=== PATIENT | female | born 1930 | race Caucasian/White ===

== ENCOUNTER 2016-12-16 23:04 | Inpatient (IN) | payer MEDICARE, OTHER ==
--- NOTE | ~2016-12-16 | DS ---
Unit #: [id number] #: [id number] Patient: SANDI JIMENEZ [id number] [facility] [address]. [place], [place] [address] [id number] MR#: [id number] NAME: SANDI JIMENEZ ROOM: 47 Age: 85 Sex: F Admission Date: 12/17/2016 : 1930 Discharge Date: 12/20/2016 Attending Physician: Cierra Worthy M.D. Primary Care Physician: Vince Mitchell M.D. DISCHARGE SUMMARY DIAGNOSIS ON ADMISSION 1. Acute urinary tract infection. 2. Acute kidney injury. DIAGNOSES ON DISCHARGE 1. Acute Escherichia coli urinary tract infection. 2. Acute on chronic kidney disease, improved. 3. Chronic kidney disease, stage 3. 4. History of atrial fibrillation. 5. Dementia. 6. History of right upper extremity injury. 7. Hypothyroidism. 8. Hypertension. 9. History of overactive bladder. 10. Parkinson disease. LABS AND PROCEDURES DONE The patient's creatinine is 1.8. It was 2.51 on admission. Sodium 134, potassium is 4.1. The patient's vitamin B12 level was 1077, folate level was 21.9, WBC 6.6, hemoglobin 10.1, platelet count is 112. MCV was 102.4. Urine culture was positive for E. coli. HOSPITAL COURSE 85-year-old patient was admitted at [facility] with acute urinary tract infection and acute kidney injury. Details are as per admission H and P. Acute Escherichia coli urinary tract infection: The patient was treated with IV antibiotics. She has responded well and her shortness of air has improved. Acute on chronic kidney disease: The patient was treated with IV fluids. Creatinine is 1.8. I believe patient has underlying chronic kidney disease stage 3. Anemia with elevated MCV: Patient's vitamin B12 and folic acid levels are good. Hemoglobin is stable. The patient's son does not want any aggressive workup done because of history of dementia. Today, patient is comfortable, is not in any acute distress. Vital signs reveal a temperature of 98.1, pulse is 62/minute, respiratory rate is Unit #: [id number] #: [id number] Patient: SANDI JIMENEZ 16/minute, blood pressure is 105/61. HEENT examination revealed no conjunctival congestion. Sclerae is nonicteric. NECK is supple, trachea is central. RESPIRATORY examination revealed decreased breath sounds bilaterally. There are no wheezes or crackles. HEART is regular rate and rhythm. S1, S2. ABDOMEN is soft, nontender. Bowel sounds are present in all four quadrants. NEUROLOGICALLY, patient is pleasantly confused. MUSCULOSKELETAL - the patient has right upper extremity weakness and swelling. Patient's son stated that she has injured her right arm years ago and is not able to use it. SKIN is warm and dry. RECOMMENDATIONS ON DISCHARGE Patient is stable. Activity is as tolerated. MEDICATIONS 1. Tylenol 650 mg p.o. q.4 hours p.r.n. 2. Januvia 50 mg p.o. daily. 3. Detrol LA 4 mg p.o. daily. 4. Atenolol 25 mg p.o. daily. 5. Senna two tablets p.o. q. h.s. 6. Carbidopa/levodopa 10/100, one tablet p.o. b.i.d. 7. Cranberry, two tablets daily. 8. Enteric coated aspirin, 325 mg p.o. daily. 9. Prilosec 40 mg p.o. daily. 10. Calcium with vitamin D, one tablet p.o. daily. 11. Synthroid 50 mcg p.o. daily. 12. Omnicef 300 mg p.o. daily for elevated creatinine. 13. Patient's glyburide was discontinued because of increased creatinine and low blood sugars. We have continued Januvia for now. If patient's blood sugars are on the lower side, then kindly DC that. 14. The patient's Lasix and lisinopril were discontinued because of elevated creatinine. Kindly address it. FOLLOWUP The patient is advised to follow up with primary care physician in one week and have a CBC and BMP done. The plan was discussed in detail with patient's son who showed complete understanding. Patient's creatinine is 1.1 today and she will have a repeat creatinine done with primary care physician in one week. We will also arrange home health regarding home PT, OT and nursing. Dictated by... Frederic Antunez TD: 12/20/2016 12:07 JOB #: [id number] Unit #: [id number] #: [id number] Patient: SANDI JIMENEZ DISCHARGE SUMMARY Page 1 of 1 X Cierra Worthy MD X DISCHARGE SUMMARY
--- NOTE | ~2016-12-16 | HP ---
Unit #: [id number] #: [id number] Patient: SANDI JIMENEZ [id number] [address] [place], [place] [address] [id number] I MR#: [id number] NAME: SANDI JIMENEZ ROOM: 454 Age: 85 Sex: F Admission Date: 12/17/2016 : 1930 Attending Physician: Shila Kwong M.D. Primary Care Physician: Vince Mitchell M.D. HISTORY AND PHYSICAL CHIEF COMPLAINT Urinary tract infection with nausea and vomiting, acute kidney injury. HISTORY This pleasant 85-year-old female with AODM, atrial fibrillation, hypertension, dementia, is admitted for UTI and acute kidney injury. The patient was placed on a honey-thickened liquid diet, tends to take in less p.o. liquids. Last evening she developed nausea and vomiting and was brought to this emergency department where she was found to have a urinary tract infection. Labs also indicate acute kidney injury. In the ER, she was treated with Zofran, IV fluids and Rocephin. PAST MEDICAL HISTORY 1. AODM. 2. Chronic atrial fibrillation, not anticoagulated due to falling and coffee ground emesis. 3. Admissions for coffee ground emesis this past year with EGD revealing only a small to medium hiatal hernia. 4. Echo 04/2010 - normal LV and RV function with moderate MR and TR. 5. Hypothyroidism. 6. History of falls. 7. Pandiverticulosis noted on colonoscopy 06/2015. 8. Essential hypertension. 9. Dementia with dysphagia and increasing immobilization syndrome. 10. Overactive bladder. 11. Possible SIADH. 12. Parkinson disease or Parkinson-like syndrome. 13. Total abdominal hysterectomy. 14. Appendectomy. 15. Bladder surgery. 16. Left shoulder surgery. 17. Resection. ALLERGIES No known drug allergies. HOME MEDICATIONS 1. Omeprazole 40 mg daily. 2. Sinemet 10/100 b.i.d. 3. Lasix 40 mg, one half tablet daily. 4. Senna-S 50 mg, two tablets q. h.s. 5. Januvia 50 mg q. p.m. 6. Detrol LA 4 mg daily. Unit #: [id number] #: [id number] Patient: SANDI JIMENEZ 7. Lisinopril 5 mg daily. 8. Glyburide 5 mg, one half tablet q. a.m. 9. Synthroid 0.1 mg daily. 10. Atenolol 50 mg, one half tablet daily. 11. Aspirin 325 mg daily. 12. Calcium. 13. Cranberry tablets. FAMILY HISTORY Noncontributory given patient's age. SOCIAL HISTORY The patient lives with her son. She uses a walker but needs assistance to ambulate. Lifelong nonsmoker, does not drink alcohol. REVIEW OF SYSTEMS Difficult to obtain due to patient's confusion but she does admit to dysuria. PHYSICAL EXAMINATION GENERAL APPEARANCE: Pleasant 85-year-old female, currently in no acute distress. VITAL SIGNS: Temperature 97.6, pulse 71, respirations 14, blood pressure 121/72. O2 saturation is 98% on room air. HEENT: Eyes PERRLA. Extraocular muscles are intact. Pharynx is benign with dry mucosal membranes and dentures in place. NECK: Supple without adenopathy or thyromegaly. CHEST: Clear. CARDIAC: Normal S1 and S2. Soft systolic murmur. ABDOMEN: Bowel sounds are present. No hepatosplenomegaly, tenderness or masses. BACK: Without CVA tenderness. EXTREMITIES: Without clubbing, cyanosis or edema. Pedal pulses are present. NEUROLOGIC: The patient is awake, alert, oriented. Cranial nerves are intact. Equal strength throughout. DIAGNOSTIC STUDIES LABORATORY: Admission labs - hematocrit is 31.1 which is improved. MCV is 103.6. Normal white count. Platelet count is 121. SMA-12 - glucose is 265, BUN 54, creatinine 2.9, up from a BUN of 16, creatinine of 1.1 in July. Calcium is 8.3. The patient had a normal B12 level in July. Urinalysis - positive leukocyte esterase, protein and blood. Innumerable red cells and white cells with 4+ bacteria. ASSESSMENT 1. Urinary tract infection with nausea and vomiting. 2. Acute kidney injury, likely related to decreased liquid intake since being on a honey-thickened liquid diet in the setting of taking Lasix. 3. Dementia with dysphagia and immobilization syndrome. 4. Atrial fibrillation, not anticoagulated due to previous upper gastrointestinal bleeding. 5. Essential hypertension. 6. Adult onset diabetes mellitus. 7. Parkinson disease. Unit #: [id number] #: [id number] Patient: SANDI JIMENEZ PLANS 1. Rocephin will be continued. 2. Would discontinue Lasix in this elderly patient who takes in little p.o. 3. IV fluids. 4. Hold lisinopril. 5. Hold oral hypoglycemics until better p.o. 6. SCDs for DVT prophylaxis. 7. Sliding scale insulin. 8. Patient is a DNR per her family. Dictated by Shila Kwong M.D. AML/df TD: 12/17/2016 05:39 JOB #: [id number] HISTORY AND PHYSICAL Page 1 of 1 X Shila Kwong MD X HISTORY AND PHYSICAL
[~2016-12-16 23:04] MED LIST: ACIPHEX20 MG PO; ASPIRIN81 M1 PO; ATENOLOL25 MG PO; ATENOLOL50 MG PO; BACTRIM DS TABL1 TA1 PO; BAYER ASPIRIN325 M1 PO; BENTYL20 M1 PO; CALCIUM 500 +1 EAC2 PO; CARAFATE1 GM PO; COATED ASPIRIN325 M1 PO; COLACE PO; COUMADIN PO; CYANOCOBAL1000 MCG/M INJ; DETROL LA PO; DETROL LA2 MG PO; EVISTA60 M1 PO; EVISTA60 MG PO; FOLIC ACID PO; FOLIC ACID0.8 MG PO; FUROSEMIDE40 MG PO; GLYBURIDE PO; GLYNASE PO; IBUPROFEN PO; JANUVIA50 MG PO; KEFLEX500 M1 PO; LASIX PO; LASIX20 MG PO; LISINOPRIL PO; LISINOPRIL5 MG PO; MACRODANTIN50 MG PO; METFORMIN HCL500 M1 PO; METOCLOPRAMIDE H5 MG; METOCLOPRAMIDE H5 MG PO; MICRONASE5 M2 PO; MIRALAX17 G2 PO; OMEPRAZOLE40 M1 PO; PERCOCET PO; PERCOCET5/325 PO; PRILOSEC20 M1 PO; PROTONIX PO; REGLAN10 MG PO; REGLAN5 MG PO; SINEMET PO; SYNTHROID PO; SYNTHROID0.1 MG PO; TENORMIN25 MG PO; TOPROL XL PO; TYLENOL EXTRA500 M1 PO; VIT E PO; VITAMIN B-122000 MC1 PO; VITAMIN B12-FO1 EACH PO; VITAMIN B122500 MCG PO; VITAMIN C500 M7 PO; ZOCOR PO; [UNRECOGNIZED DRUG - OTHER] PO
[2016-12-17 01:09] LABS: BASOPHIL% 0.4 % (0-2.5); EOSINOPHIL% 0.4 % (0.0-7.0); HEMATOCRIT 31.1 % (35.0-45.0); HEMOGLOBIN 10.2 gm/dL (12.0-16.0); LYMPHOCYTE# 1.2 X10e3 (1.0-3.5); LYMPHOCYTE% 13.1 % (17.0-45.0); MEAN CELL VOLUME 103.6 FL (83-96); MEAN CORPUSCULAR HEMOGLOBIN 34.2 PG (28-34); MONOCYTE# 0.7 X10e3 (0-1.0); MONOCYTE% 7.3 % (3.0-12.0); NEUTROPHIL# 7.1 X10e3 (1.5-7.1); NEUTROPHIL% 78.8 % (40-75); PLATELET COUNT 121 X10e3 (140-420); RED CELL DISTRIBUTION WIDTH 14.2 % (11.0-15.5); WHITE BLOOD COUNT 9.1 X10e3 (4.0-10.5)
[2016-12-17 01:11] LABS: DIFF IND NO
[2016-12-17 01:42] LABS: BUN/CREATININE RATIO 18.62; CALCIUM SERUM 8.3 mg/dL (8.4-10.2); CREATININE SERUM 2.9 mg/dL (0.6-1.4); GLOM FILT RATE Estimated 14.3 mL/min (>60); POTASSIUM 4.4 mmol/L (3.5-5.1)
[2016-12-17 02:31] LABS: URINE SOURCE CLEAN CATCH
[2016-12-17 02:40] LABS: URINE APPEARANCE TURBID; URINE BILIRUBIN NEG (NEG); URINE BLOOD 3+ (NEG); URINE COLOR RED; URINE GLUCOSE NEG (NEG); URINE KETONE NEG (NEG); URINE LEUKOCYTE ESTERASE 3+ (NEG); URINE NITRATE NEG (NEG); URINE PH 5.5 (5-8); URINE PROTEIN 3+ (NEG); URINE SPECIFIC GRAVITY 1.016 (1.003-1.035); URINE UROBILINOGEN 0.2 MG/DL (NEG)
[2016-12-17 02:44] LABS: CULTURE INDICATED? YES; URBCS1 AUWI INNUM /[HPF] (0-2); URINE BACTERIA AUWI 4+ (NEGATIVE); URINE SQUAMOUS EPITHELIAL CELL NONE SEEN /[HPF]; UWBCS1 AUWI INNUM (0-5)
[2016-12-17] MEDS ORDERED: CARBIDOPA-LEVO1 EACH PO (03:19)
[2016-12-17] MEDS ORDERED: SENNA-S TABLET1 EACH PO (03:19)
[2016-12-17] MEDS ORDERED: OMEPRAZOLE40 M1 PO (03:19)
[2016-12-17] MEDS ORDERED: LASIX20 MG PO (03:19)
[2016-12-17] MEDS ORDERED: LISINOPRIL5 MG PO (03:21)
[2016-12-17] MEDS ORDERED: GLYBURIDE2.5 M1 PO (03:21)
[2016-12-17] MEDS ORDERED: JANUVIA50 MG PO (03:21)
[2016-12-17] MEDS ORDERED: DETROL LA PO (03:21)
[2016-12-17] MEDS ORDERED: ATENOLOL25 MG PO (03:22)
[2016-12-17] MEDS ORDERED: CALCIUM 500 +1 EAC1 PO (03:22)
[2016-12-17] MEDS ORDERED: LEVOTHYROXINE100 MCG PO (03:22)
[2016-12-17] MEDS ORDERED: ASPIRIN PO (03:22)
[2016-12-17] MEDS ORDERED: CRANBERRY450 M2 PO (03:23)
[2016-12-18 04:18] LABS: BUN/CREATININE RATIO 18.4; CALCIUM SERUM 7.4 mg/dL (8.4-10.2); CREATININE SERUM 2.5 mg/dL (0.6-1.4); GLOM FILT RATE Estimated 17.1 mL/min (>60); POTASSIUM 4.5 mmol/L (3.5-5.1)
[2016-12-18 08:10] LABS: BASOPHIL% 0.6 % (0-2.5); EOSINOPHIL# 0.5 X10e3 (0-0.7); EOSINOPHIL% 6.9 % (0.0-7.0); HEMOGLOBIN 9.6 gm/dL (12.0-16.0); LYMPHOCYTE# 1.6 X10e3 (1.0-3.5); LYMPHOCYTE% 22.3 % (17.0-45.0); MEAN CELL VOLUME 103.3 FL (83-96); MEAN CORPUSCULAR HEMOGLOBIN 34.2 PG (28-34); MEAN CORPUSCULAR HGB CONC 33.1 g/dL (30-36); MEAN PLATELET VOLUME 9.8 FL (6.5-11.5); MONOCYTE# 0.6 X10e3 (0-1.0); MONOCYTE% 8.9 % (3.0-12.0); NEUTROPHIL# 4.3 X10e3 (1.5-7.1); NEUTROPHIL% 61.3 % (40-75); PLATELET COUNT 121 X10e3 (140-420); RED BLOOD COUNT 2.81 X10e (3.90-5.30); RED CELL DISTRIBUTION WIDTH 14.3 % (11.0-15.5); WHITE BLOOD COUNT 7.1 X10e3 (4.0-10.5)
[2016-12-18 08:32] LABS: DIFF IND NO
[2016-12-19 04:32] LABS: BUN/CREATININE RATIO 19.09; CALCIUM SERUM 7.8 mg/dL (8.4-10.2); CREATININE SERUM 2.2 mg/dL (0.6-1.4); GLOM FILT RATE Estimated 19.9 mL/min (>60); POTASSIUM 4.4 mmol/L (3.5-5.1)
[2016-12-19 04:55] LABS: FOLATE (FOLIC ACID) 21.9 ng/mL (>5.8)
[2016-12-20 04:25] LABS: HEMATOCRIT 30.9 % (35.0-45.0); HEMOGLOBIN 10.1 gm/dL (12.0-16.0); MEAN CELL VOLUME 102.4 FL (83-96); MEAN CORPUSCULAR HEMOGLOBIN 33.5 PG (28-34); MEAN CORPUSCULAR HGB CONC 32.7 g/dL (30-36); MEAN PLATELET VOLUME 9.8 FL (6.5-11.5); RED BLOOD COUNT 3.02 X10e (3.90-5.30); RED CELL DISTRIBUTION WIDTH 13.6 % (11.0-15.5); WHITE BLOOD COUNT 6.6 X10e3 (4.0-10.5)
[2016-12-20 04:37] LABS: BUN/CREATININE RATIO 21.11; CALCIUM SERUM 8.1 mg/dL (8.4-10.2); CREATININE SERUM 1.8 mg/dL (0.6-1.4); GLOM FILT RATE Estimated 25.4 mL/min (>60); POTASSIUM 4.1 mmol/L (3.5-5.1)
[2016-12-20] MEDS ORDERED: OMNICEF300 MG PO (13:33)
== END 2016-12-20 14:04 | disposition home health service (06) | DRG 683 ==
LOC: CED 23:04 → C4C 12-17 03:55 → CEDOF 12-17 03:55 → CED 12-17 03:59 → C4B 12-17 03:59 → CEDOF 12-17 05:38 → C4B 12-17 05:38 → C4C 12-18 19:32
PROVIDERS: Emergency Medicine; Internal Medicine
PROC: 05HC33Z Insertion of Infusion Device into Left Basilic Vein, Percutaneous Approach (ICD-10-PCS; principal; 2016-12-18)
PROC: 05HA33Z Insertion of Infusion Device into Left Brachial Vein, Percutaneous Approach (ICD-10-PCS; 2016-12-19)
DX: N17.9 Acute kidney failure, unspecified (principal); N39.0 Urinary tract infection, site not specified; E11.22 Type 2 diabetes mellitus with diabetic chronic kidney disease; G20 Parkinson's disease; I48.2 Chronic atrial fibrillation; R13.10 Dysphagia, unspecified; B96.20 Unspecified Escherichia coli [E. coli] as the cause of diseases classified elsewhere; I12.9 Hypertensive chronic kidney disease with stage 1 through stage 4 chronic kidney disease, or unspecified chronic kidney disease; N18.3 Chronic kidney disease, stage 3 (moderate); Z79.84 Long term (current) use of oral hypoglycemic drugs; F02.80 Dementia in other diseases classified elsewhere, unspecified severity, without behavioral disturbance, psychotic disturbance, mood disturbance, and anxiety; E03.9 Hypothyroidism, unspecified; D64.9 Anemia, unspecified; M62.3 Immobility syndrome (paraplegic); Z90.710 Acquired absence of both cervix and uterus; Z79.82 Long term (current) use of aspirin
CPT/HCPCS: 36415; 80048; 81003; 82607; 82746; 82947; 83690; 85025; 85027; 87086; 87186; 96360; 96361; 97116; 97163; 97167; 97530; 99285; G8978-GP; G8979-GP; G8980-GP; G8987-GO; G8988-GO; J0696; J1815

== ENCOUNTER → 2017-02-03 | Outpatient (CLI) | payer MEDICARE, OTHER ==
[~2017-02-03] MED LIST changes: +ASPIRIN PO; +CALCIUM 500 +1 EAC1 PO; +CARBIDOPA-LEVO1 EACH PO; +CRANBERRY450 M2 PO; +GLYBURIDE2.5 M1 PO; +LEVOTHYROXINE100 MCG PO; +OMNICEF300 MG PO; +SENNA-S TABLET1 EACH PO
[2017-02-03 15:32] LABS: BASOPHIL# 0.1 X10e3 (0-0.3); BASOPHIL% 0.8 % (0-2.5); DIFF IND NO; EOSINOPHIL# 0.6 X10e3 (0-0.7); EOSINOPHIL% 8.9 % (0.0-7.0); HEMATOCRIT 32.8 % (35.0-45.0); HEMOGLOBIN 10.8 gm/dL (12.0-16.0); LYMPHOCYTE# 1.7 X10e3 (1.0-3.5); LYMPHOCYTE% 26.3 % (17.0-45.0); MEAN CELL VOLUME 102.9 FL (83-96); MEAN CORPUSCULAR HEMOGLOBIN 33.9 PG (28-34); MEAN CORPUSCULAR HGB CONC 32.9 g/dL (30-36); MEAN PLATELET VOLUME 9.4 FL (6.5-11.5); MONOCYTE# 0.6 X10e3 (0-1.0); MONOCYTE% 8.8 % (3.0-12.0); NEUTROPHIL# 3.5 X10e3 (1.5-7.1); NEUTROPHIL% 55.2 % (40-75); PLATELET COUNT 165 X10e3 (140-420); RED BLOOD COUNT 3.19 X10e (3.90-5.30); RED CELL DISTRIBUTION WIDTH 13.8 % (11.0-15.5); WHITE BLOOD COUNT 6.4 X10e3 (4.0-10.5)
[2017-02-03 16:24] LABS: THYROID STIMULATING HORMONE 1.77 uIU/ml (0.34-5.60)
[2017-02-03 16:28] LABS: FREE T3 1.5 pg/mL (2.5-3.9)
[2017-02-03 16:30] LABS: FREE THYROXIN (T4) 1.4 ng/dL (0.58-1.64)
[2017-02-03 16:36] LABS: BILIRUBIN,TOTAL 0.8 mg/dL (0.2-2.0); BUN/CREATININE RATIO 16.36; CALCIUM SERUM 8.4 mg/dL (8.4-10.2); CREATININE SERUM 2.2 mg/dL (0.6-1.4); GLOM FILT RATE Estimated 19.8 mL/min (>60); POTASSIUM 4.6 mmol/L (3.5-5.1); PROTEIN TOTAL SERUM 6.6 g/dL (6.0-8.3)
== END | disposition home or self-care (01) ==
LOC: CLAB 14:47
PROVIDERS: Internal Medicine
DX: N39.0 Urinary tract infection, site not specified (principal); E03.9 Hypothyroidism, unspecified; E11.9 Type 2 diabetes mellitus without complications; E78.00 Pure hypercholesterolemia, unspecified; M79.1 Myalgia; Z79.899 Other long term (current) drug therapy
CPT/HCPCS: 36415; 80053; 80061; 82043; 82550; 83036; 84439; 84443; 84481; 85025